=== PATIENT | male | born 1990 | race Caucasian/White ===

== ENCOUNTER 2024-01-08 17:05 | Inpatient (IN) | payer MEDICAID, OTHER ==
[~2024-01-08] VITALS: Ht 165.1 cm; Wt 54.4 kg
[2024-01-08 18:27] LABS: BASOPHILS % (AUTO) 0.1 % (0.0-2.0); EOSINOPHILS # (AUTO) 0.3 K/uL (0.0-0.7); EOSINOPHILS % (AUTO) 0.9 % (0.0-6.0); HEMATOCRIT 33 % (39-51); HEMOGLOBIN 11.2 g/dL (13.5-17.5); LYMPHOCYTES # (AUTO) 0.9 K/uL (0.8-4.8); LYMPHOCYTES % (AUTO) 2.5 % (20.0-44.0); MEAN CORPUSCULAR HEMOGLOBIN 33 PG (26.0-33.0); MEAN CORPUSCULAR HGB CONC 34 g/dl (31.0-36.0); MEAN CORPUSCULAR VOLUME 95 fL (80-96); MONOCYTES # (AUTO) 2.9 K/uL (0.1-1.30); MONOCYTES % (AUTO) 7.8 % (2.0-12.0); NEUTROPHILS # (AUTO) 33.4 K/uL (1.8-8.9); NEUTROPHILS % (AUTO) 88.7 % (43.0-81.0); RED BLOOD CELL COUNT(AUTO) 3.43 MIL/uL (4.5-6.0); RED CELL DISTRIBUTION WIDTH 13.9 % (11.5-15.0)
[2024-01-08] MEDS: IV NS 0.9% 1,000 ML BAG IV ONE (18:28)
[2024-01-08 18:52] LABS: CREATINE KINASE, TOTAL 353 U/L (39-308)
[2024-01-08 18:53] LABS: ALANINE AMINOTRANSFERASE 26 U/L (12-78); ALBUMIN 1.5 g/dL (3.4-5.0); ALCOHOL, BLOOD < 3 mg/dL (0-10); ALKALINE PHOSPHATASE 227 U/L (46-116); ASPARTATE AMINOTRANSFERASE 117 U/L (15-37); BILIRUBIN,DIRECT 1.8 mg/dL (0.0-0.2); BILIRUBIN,TOTAL 2.2 mg/dL (0.2-1.0); CARBON DIOXIDE 24 mmol/L (21-32); CHLORIDE 88 mmol/L (98-107); CREATININE 2.7 mg/dL (0.6-1.3); GLUCOSE 94 mg/dL (74-106); POTASSIUM 3.5 mmol/L (3.5-5.1); SODIUM SERUM 130 mmol/L (136-145); TOTAL PROTEIN, SERUM 6.1 g/dL (6.4-8.2)
[2024-01-08 18:54] LABS: APPEARANCE,URINE CLEAR (CLEAR); BILIRUBIN,URINE 1+ (NEGATIVE); BLOOD, URINE 3+ Ery/uL (NEGATIVE); COLOR,URINE YELLOW (YELLOW); KETONES,URINE NEGATIVE (NEGATIVE); LEUKOCYTE ESTERASE ,URINE NEGATIVE (NEGATIVE); NITRITE, URINE NEGATIVE (NEGATIVE); PROTEIN,URINE 1+ mg/dl (NEGATIVE); UGLUCOSE NEGATIVE (NEGATIVE)
[2024-01-08 19:02] LABS: ACETAMINOPHEN <10 ug/ml (10-30); SALICYLATE 1.6 mg/dL (2.8-20.0); UREA NITROGEN, BLOOD 81 mg/dL (7-18)
[2024-01-08 19:03] LABS: LACTIC ACID 3.3 mmol/L (0.4-2.0)
[2024-01-08 19:07] LABS: PLATELET COUNT (AUTO) 11 K/uL (150-450); WHITE BLOOD COUNT (AUTO) 37.6 K/uL (4.3-11.0)
[2024-01-08 19:12] LABS: BARBITURATE, URINE NEGATIVE (NEGATIVE); BENZODIAZEPINE, URINE NEGATIVE (NEGATIVE); CANNABINOID, URINE NEGATIVE (NEGATIVE); COCCAINE, URINE NEGATIVE (NEGATIVE); OPIATE, URINE NEGATIVE (NEGATIVE); PHENCYCLIDINE SCREEN,URINE NEGATIVE (NEGATIVE)
[2024-01-08 19:14] LABS: AMPHETAMINE, URINE POSITIVE (NEGATIVE)
[2024-01-08 19:16] LABS: ADD URINE CULTURE NO; BACTERIA,URINE None seen /HPF (None Seen); RBC,URINE 21-50 /HPF (0-2); SQUAMOUS EPITHELIAL CELL,UR 0-2 /HPF (None Seen); WBC,URINE 0-2 /HPF (0-3)
[2024-01-08 19:19] LABS: ANISOCYTOSIS 1+; BAND % (MANUAL) 4 % (0.0-5.0); LYMPHOCYTES % (MANUAL) 2 % (16-48); MONOCYTES % (MANUAL) 2 % (0-11.0); NEUTROPHILS % (MANUAL) 92 (42-76); PLATELET ESTIMATE DECREASED
[2024-01-08 19:20] LABS: TARGET CELLS RARE
[2024-01-08] MEDS ORDERED: VANCOMYCIN 1 GM /D5W 250 ML PB IV ONE (19:47)
[2024-01-08] MEDS ORDERED: PIPERACI/TAZO 3.375GM/D5W 50ML PB IV ONE (19:47)
[2024-01-08] MEDS: PIPERACILLIN /TAZOBACTAM 3.375 G in IV D5W 50 ML IV ONE (20:00)
[2024-01-08] MEDS: IV LR 1000 ML 1,000 ML BAG IV ONE (20:03)
[2024-01-08] MEDS: LORAZEPAM INJ 2 MG/ML VIAL IV ONE (20:05)
[2024-01-08 20:21] LABS: SITE, VBG Other; VBG BASE EXCESS 0.1 mmol/L (-3-3); VBG COHb 0.5 %; VBG MetHb 0.1 %; VBG O2Hb 83.8 %; VBG OXYGEN SATURATION 84.3 %; VBG PH 7.487 (7.31-7.41); VBG PO2 48.5 mmHg (30-50); VBG TOTAL HEMOGLOBIN 10.1 G/dL (13.5-18.0); VENT MODE, VBG room air
[2024-01-08] MEDS: VANCOMYCIN 1 GM in IV D5W 250 ML IV ONE (20:30)
[2024-01-08 21:25] VITALS: BP 103/51; TEMP 99; O2SAT 100
[2024-01-08] MEDS ORDERED: MAG HYDROX/AL HYDROX/SIMETH 30 ML UDC PO PRN (22:30)
[2024-01-08] MEDS ORDERED: MAGNESIUM HYDROXIDE 30 ML UDC PO PRN (22:30)
[2024-01-08] MEDS ORDERED: ONDANSETRON HCL/PF 4 MG/2 ML VIAL IVP PRN (22:30)
[2024-01-08] MEDS ORDERED: ZOLPIDEM TARTRATE 5 MG TABLET PO PRN (22:30)
[2024-01-08] MEDS: IV NS 0.9% 1,000 ML IV PRN (22:33)
[2024-01-08 23:41] VITALS: BP 103/51; TEMP 99; O2SAT 100
[2024-01-09] VITALS: BP 95/43; TEMP 99.1; O2SAT 99
[2024-01-09] MEDS ORDERED: PIPERACILLIN /TAZOBACTAM 2.25 G in IV D5W 50 ML IV SCH
[2024-01-09] MEDS: PIPERACI/TAZO 3.375GM/D5W 50ML PB IV ONE ×2 (01:19→05:52)
[2024-01-09] MEDS: PIPERACILLIN /TAZOBACTAM 3.375 G in IV NS 0.9% 100 ML IV SCH (01:34)
[2024-01-09 04:00] VITALS: BP 130/50; TEMP 97.7; O2SAT 100
[2024-01-09 07:00] VITALS: BP 117/38; TEMP 97.7; O2SAT 99
[2024-01-09 07:11] LABS: ERYTHROCYTE SEDIMENTATION RATE 30 MM/HR (0-15)
[2024-01-09 07:26] LABS: BILIRUBIN,DIRECT 2.6 mg/dL (0.0-0.2); CALCIUM, SERUM 7.7 mg/dL (8.5-10.1); CREATININE 2.1 mg/dL (0.6-1.3); PHOSPHORUS 4.5 mg/dL (2.5-4.9); TOTAL PROTEIN, SERUM 5.2 g/dL (6.4-8.2)
[2024-01-09 07:33] LABS: MAGNESIUM 2.6 mg/dL (1.8-2.4); THYROID STIMULATING HORMONE 3.959 uIU/mL (0.358-3.74)
[2024-01-09 07:56] LABS: EOSINOPHILS # (AUTO) 0.3 K/uL (0.0-0.7); EOSINOPHILS % (AUTO) 1.1 % (0.0-6.0); HEMATOCRIT 27 % (39-51); LYMPHOCYTES # (AUTO) 1.5 K/uL (0.8-4.8); LYMPHOCYTES % (AUTO) 4.7 % (20.0-44.0); MEAN CORPUSCULAR HEMOGLOBIN 33 PG (26.0-33.0); MEAN CORPUSCULAR HGB CONC 34 g/dl (31.0-36.0); MEAN CORPUSCULAR VOLUME 96 fL (80-96); MONOCYTES # (AUTO) 2.9 K/uL (0.1-1.30); MONOCYTES % (AUTO) 8.9 % (2.0-12.0); NEUTROPHILS % (AUTO) 85.3 % (43.0-81.0); RED BLOOD CELL COUNT(AUTO) 2.77 MIL/uL (4.5-6.0); RED CELL DISTRIBUTION WIDTH 14.1 % (11.5-15.0)
[2024-01-09 07:57] LABS: ALBUMIN 1.3 g/dL (3.4-5.0); POTASSIUM 2.3 mmol/L (3.5-5.1)
[2024-01-09 08:32] LABS: PLATELET COUNT (AUTO) 12 K/uL (150-450); WHITE BLOOD COUNT (AUTO) 32.8 K/uL (4.3-11.0)
[2024-01-09] MEDS: PIPERACILLIN /TAZOBACTAM 3.375 G in IV D5W 100 ML IV SCH (09:01)
[2024-01-09] MEDS: PANTOPRAZOLE 40 MG VIAL IV SCH (09:05)
[2024-01-09] MEDS: POTASSIUM CL. PREMIX PERIPHER. 50 ML IV SCH (11:21)
[2024-01-09 11:24] LABS: ANISOCYTOSIS 1+; BASOPHILS % (MANUAL) 0 % (0.0-2.0); EOSINOPHILS % (MANUAL) 2 % (0-4); LYMPHOCYTES % (MANUAL) 5 % (16-48); MONOCYTES % (MANUAL) 7 % (0-11.0); NEUTROPHILS % (MANUAL) 86 (42-76); PLATELET ESTIMATE DECREASED
[2024-01-09 11:30] VITALS: BP 105/42; TEMP 93.7; O2SAT 100
[2024-01-09] MEDS: MEROPENEM 1 G in IV NS 0.9% 100 ML IV SCH (12:23)
[2024-01-09 16:00] VITALS: BP 105/47; TEMP 97.7; O2SAT 100
[2024-01-09] MEDS: BLOOD SUGAR DIAGNOSTIC 1 EACH STRIP IN SCH (18:27)
[2024-01-09 20:00] VITALS: BP 110/50; TEMP 97.7; O2SAT 100
[2024-01-09] MEDS: VANCOMYCIN 1 GM in IV D5W 250 ML IV SCH (20:17)
[2024-01-10] VITALS (7 sets, daily range): BP systolic 112–133; BP diastolic 42–61; TEMP 97.9–99.9; O2SAT 96–100
[2024-01-10 01:48] LABS: HIV-1 p24 ANTIGEN NON REACTIVE (NONREACTIVE); HIV-1/2 ANTIBODY NON REACTIVE (NONREACTIVE)
[2024-01-10 07:29] LABS: BASOPHILS % (AUTO) 0.1 % (0.0-2.0); EOSINOPHILS % (AUTO) 0.2 % (0.0-6.0); HEMATOCRIT 24 % (39-51); HEMOGLOBIN 8.4 g/dL (13.5-17.5); LYMPHOCYTES # (AUTO) 1.4 K/uL (0.8-4.8); LYMPHOCYTES % (AUTO) 6.3 % (20.0-44.0); MEAN CORPUSCULAR HEMOGLOBIN 33 PG (26.0-33.0); MEAN CORPUSCULAR HGB CONC 34 g/dl (31.0-36.0); MEAN CORPUSCULAR VOLUME 96 fL (80-96); MONOCYTES # (AUTO) 1.7 K/uL (0.1-1.30); MONOCYTES % (AUTO) 7.5 % (2.0-12.0); NEUTROPHILS # (AUTO) 19.4 K/uL (1.8-8.9); NEUTROPHILS % (AUTO) 85.9 % (43.0-81.0); RED BLOOD CELL COUNT(AUTO) 2.55 MIL/uL (4.5-6.0); RED CELL DISTRIBUTION WIDTH 14.3 % (11.5-15.0); WHITE BLOOD COUNT (AUTO) 22.6 K/uL (4.3-11.0)
[2024-01-10 07:51] LABS: PLATELET COUNT (AUTO) 25 K/uL (150-450)
[2024-01-10 09:27] LABS: BILIRUBIN,TOTAL 2.2 mg/dL (0.2-1.0); CALCIUM, SERUM 7.9 mg/dL (8.5-10.1); CREATININE 1.5 mg/dL (0.6-1.3); MAGNESIUM 2.5 mg/dL (1.8-2.4); PHOSPHORUS 4.1 mg/dL (2.5-4.9); POTASSIUM 3.2 mmol/L (3.5-5.1); TOTAL PROTEIN, SERUM 5.4 g/dL (6.4-8.2)
[2024-01-10 10:19] LABS: ALBUMIN 1.3 g/dL (3.4-5.0)
[2024-01-10] MEDS: POTASSIUM CHLORIDE 20 MEQ POWDER PACKET PO ONE (12:55)
[2024-01-10 14:51] LABS: ANISOCYTOSIS 1+; LYMPHOCYTES % (MANUAL) 4 % (16-48); MONOCYTES % (MANUAL) 2 % (0-11.0); NEUTROPHILS % (MANUAL) 94 (42-76); PLATELET ESTIMATE DECREASED
[2024-01-11 01:34] VITALS: BP 121/48; TEMP 97.7; O2SAT 95
[2024-01-11 05:37] VITALS: BP 136/58; TEMP 99.7; O2SAT 92
[2024-01-11 08:00] VITALS: BP 134/56; TEMP 99.7; O2SAT 98
[2024-01-11 08:24] LABS: CALCIUM, SERUM 7.8 mg/dL (8.5-10.1); CREATININE 1.1 mg/dL (0.6-1.3); POTASSIUM 3.2 mmol/L (3.5-5.1)
[2024-01-11] MEDS: PANTOPRAZOLE 40 MG TABLET.DR PO SCH (08:34)
[2024-01-11] MEDS: PROSOURCE / PROSTAT (PYXIS) 30 ML UDC PO SCH (08:35)
[2024-01-11 09:08] LABS: PTH, INTACT 18 pg/mL (15-65)
[2024-01-11] MEDS: POTASSIUM CHLORIDE 20 MEQ POWDER PACKET PO SCH (10:49)
[2024-01-11] MEDS: ENSURE ENLIVE CHOC 237 ML CAN PO SCH (11:55)
[2024-01-11 12:00] VITALS: BP 147/76; TEMP 99.7; O2SAT 100
[2024-01-11 16:00] VITALS: BP 130/52; TEMP 99.1; O2SAT 97
[2024-01-11 16:10] LABS: *SPE A/G RATIO 0.5 (0.7-1.7); *SPE ALBUMIN 1.7 g/dL (2.9-4.4); *SPE ALPHA-1-GLOBULIN 0.4 g/dL (0.0-0.4); *SPE ALPHA-2-GLOBULIN 0.5 g/dL (0.4-1.0); *SPE BETA GLOBULIN 0.7 g/dL (0.7-1.3); *SPE GLOBULIN, TOTAL 3.1 g/dL (2.2-3.9); *SPE M-SPIKE Not Observed g/dL (Not Observed); *SPE PROTEIN TOTAL 4.8 g/dL (6.0-8.5); *SPEGAMMA GLOBULIN 1.4 g/dL (0.4-1.8)
[2024-01-11 20:00] VITALS: BP 131/60; TEMP 99.7; O2SAT 100; O2SAT 97
[2024-01-12] VITALS: BP 128/74; TEMP 99.7; O2SAT 91
[2024-01-12 04:00] VITALS: BP 135/79; TEMP 99.9; O2SAT 99
[2024-01-12 07:31] LABS: CALCIUM, SERUM 7.6 mg/dL (8.5-10.1); CREATININE 0.9 mg/dL (0.6-1.3)
[2024-01-12 08:00] VITALS: BP 153/75; TEMP 98.8; O2SAT 97
[2024-01-12] MEDS: VANCOMYCIN 1 GM in IV D5W 250 ML IV SCH (08:54)
[2024-01-12] MEDS: MEROPENEM 1 G in IV NS 0.9% 100 ML IV SCH (11:39)
[2024-01-12 12:00] VITALS: BP 153/80; TEMP 98.9; O2SAT 91
[2024-01-12 15:12] LABS: INR 1.47 (0.91-1.10); PARTIAL THROMBOPLASTIN TIME 30.6 SEC (24.3-34.3); PROTHROMBIN TIME 15.2 SECS (9.2-11.1)
[2024-01-12 16:00] VITALS: BP 144/88; TEMP 99.7; O2SAT 91
[2024-01-12] MEDS: VANCOMYCIN 750 MG in IV D5W 250 ML IV SCH (16:05)
[2024-01-12] MEDS ORDERED: CEFTRIAXONE 1 G VIAL IM SCH (17:00)
[2024-01-12] MEDS: ACETAMINOPHEN 325 MG TABLET PO PRN (17:22)
[2024-01-12 18:11] LABS: *HIV-1 RNA BY PCR <20 copies/mL (.)
[2024-01-12 20:00] VITALS: BP 125/61; TEMP 97.9; O2SAT 95
[2024-01-12] MEDS: CEFTRIAXONE 1 G in IV D5W 50 ML IV SCH (20:06)
[2024-01-13] VITALS (7 sets, daily range): BP systolic 120–140; BP diastolic 60–83; TEMP 98–99.7; O2SAT 97–100
[2024-01-13] MEDS: DEXTROSE 50%-WATER 50 ML DISP.SYRIN IV PRN (05:43)
[2024-01-13 07:52] LABS: CALCIUM, SERUM 7.4 mg/dL (8.5-10.1); POTASSIUM 4.1 mmol/L (3.5-5.1)
[2024-01-13 12:52] LABS: THYROID STIMULATING HORMONE 11.697 uIU/mL (0.358-3.74)
[2024-01-13] MEDS: Thiamine 250 MG in IV D5W 50 ML IV SCH (13:00)
[2024-01-13] MEDS: GABAPENTIN 300 MG CAPSULE PO SCH (17:35)
[2024-01-13] MEDS: MORPHINE SULFATE INJ 2 MG/ML DISP.SYRIN IV PRN (18:43)
[2024-01-14] VITALS (10 sets, daily range): BP systolic 100–143; BP diastolic 55–81; TEMP 97.6–99.9; O2SAT 88–100
[2024-01-14] MEDS: AMIODARONE HCL 200 MG TABLET PO SCH (08:45)
[2024-01-14] MEDS ORDERED: GABAPENTIN 300 MG CAPSULE PO SCH (10:30)
[2024-01-14 11:51] LABS: CALCIUM, SERUM 7.7 mg/dL (8.5-10.1); CREATININE 1.1 mg/dL (0.6-1.3); POTASSIUM 4.9 mmol/L (3.5-5.1)
[2024-01-14] MEDS: GABAPENTIN 300 MG CAPSULE PO SCH (12:04)
[2024-01-14 12:07] LABS: FOLIC ACID 12.5 ng/mL (>3.0)
[2024-01-14 15:44] LABS: ABG BASE EXCESS -6.1 mmol/L; ABG OXYGEN SATURATION 98.4 % (92.0-98.5); ABG PCO2 26.9 mmHg (35.0-45.0); ABG PH 7.428 (7.350-7.450); ABG PO2 147.2 mmHg (75.0-100.0); ABG TOTAL HEMOGLOBIN 8.5 G/dL (13.5-18.0); AaDO2 538.9 mmHg; COHb 0.8 % (0.5-1.5); MetHb 0.3 % (0.0-1.5); O2Hb 97.3 % (94.0-97.0); SITE, ABG Right Femoral; VENT MODE, BG NON REBREATHER
[2024-01-14] MEDS ORDERED: Sodium Bicarbonate 100 MEQ in IV D5/0.45 NACL 1,000 ML IV PRN (20:30)
[2024-01-14] MEDS: CEFTRIAXONE 2 G in IV D5W 50 ML IV SCH (20:41)
[2024-01-14] MEDS: SODIUM BICARBONATE SYR 50 MEQ/50 ML DISP.SYRIN ONE (20:54)
[2024-01-14] MEDS: Sodium Bicarbonate 50 MEQ in IV D5/0.45 NACL 1,000 ML IV PRN (21:04)
[2024-01-14] MEDS: QUETIAPINE FUMARATE 25 MG TABLET PO SCH (22:00)
[2024-01-14 23:28] LABS: ABG BASE EXCESS -10.1 mmol/L; ABG OXYGEN SATURATION 91.2 % (92.0-98.5); ABG PH 7.235 (7.350-7.450); ABG PO2 77.8 mmHg (75.0-100.0); ABG TOTAL HEMOGLOBIN 8.6 G/dL (13.5-18.0); AaDO2 595.2 mmHg; COHb 0.3 % (0.5-1.5); MetHb 0.3 % (0.0-1.5); O2Hb 90.7 % (94.0-97.0); SITE, ABG Left Radial; VENT MODE, BG 15LPM NRB
[2024-01-14] MEDS: LORAZEPAM INJ 2 MG/ML VIAL IV ONE (23:30)
[2024-01-15] VITALS (7 sets, daily range): BP systolic 114–133; BP diastolic 50–81; TEMP 98–98.7; O2SAT 88–100
[2024-01-15] MEDS: SODIUM BICARBONATE SYR 50 MEQ/50 ML DISP.SYRIN IV ONE (00:26)
[2024-01-15 01:37] LABS: ABG BASE EXCESS -4.8 mmol/L; ABG OXYGEN SATURATION 98.8 % (92.0-98.5); ABG PCO2 27.6 mmHg (35.0-45.0); ABG PH 7.446 (7.350-7.450); ABG PO2 192.4 mmHg (75.0-100.0); ABG TOTAL HEMOGLOBIN 7.7 G/dL (13.5-18.0); COHb 0.2 % (0.5-1.5); MetHb 0.4 % (0.0-1.5); O2Hb 98.2 % (94.0-97.0); SITE, ABG Right Radial; VENT MODE, BG S/T 20/8 RR20 FIO2 100
[2024-01-15 02:37] LABS: BASOPHILS % (AUTO) 0.1 % (0.0-2.0); HEMATOCRIT 24 % (39-51); HEMOGLOBIN 7.6 g/dL (13.5-17.5); LYMPHOCYTES # (AUTO) 1.4 K/uL (0.8-4.8); LYMPHOCYTES % (AUTO) 5.4 % (20.0-44.0); MEAN CORPUSCULAR HEMOGLOBIN 33 PG (26.0-33.0); MEAN CORPUSCULAR HGB CONC 32 g/dl (31.0-36.0); MEAN CORPUSCULAR VOLUME 104 fL (80-96); MONOCYTES # (AUTO) 0.6 K/uL (0.1-1.30); MONOCYTES % (AUTO) 2.3 % (2.0-12.0); NEUTROPHILS # (AUTO) 23.7 K/uL (1.8-8.9); NEUTROPHILS % (AUTO) 92.2 % (43.0-81.0); PLATELET COUNT (AUTO) 53 K/uL (150-450); RED BLOOD CELL COUNT(AUTO) 2.29 MIL/uL (4.5-6.0); RED CELL DISTRIBUTION WIDTH 14.2 % (11.5-15.0); WHITE BLOOD COUNT (AUTO) 25.7 K/uL (4.3-11.0)
[2024-01-15 02:47] LABS: CALCIUM, SERUM 7.5 mg/dL (8.5-10.1); CREATININE 1.2 mg/dL (0.6-1.3); POTASSIUM 5.5 mmol/L (3.5-5.1)
[2024-01-15 02:51] LABS: BILIRUBIN,DIRECT 0.6 mg/dL (0.0-0.2); BILIRUBIN,TOTAL 0.9 mg/dL (0.2-1.0); TOTAL PROTEIN, SERUM 5.5 g/dL (6.4-8.2)
[2024-01-15 02:54] LABS: ALBUMIN 1.2 g/dL (3.4-5.0)
[2024-01-15 03:18] LABS: NEUTROPHILS % (MANUAL) 96 (42-76)
[2024-01-15 03:19] LABS: ANISOCYTOSIS 2+; LYMPHOCYTES % (MANUAL) 3 % (16-48); MONOCYTES % (MANUAL) 1 % (0-11.0); PLATELET ESTIMATE DECREASED
[2024-01-15] MEDS: SODIUM POLYSTYRENE SULFONATE 15 G/60 ML BOTTLE PO ONE (08:54)
[2024-01-15] MEDS: FUROSEMIDE 20 MG/2 ML VIAL IV ONE (08:55)
[2024-01-15] MEDS: LACTULOSE 10 G/15 ML UDC (PYXIS) PO SCH (08:55)
[2024-01-15] MEDS: FUROSEMIDE 40 MG/4 ML VIAL IV SCH (10:09)
[2024-01-15] MEDS: MEROPENEM 1 G in IV NS 0.9% 100 ML IV SCH (12:56)
[2024-01-15 17:02] LABS: CALCIUM, SERUM 7.3 mg/dL (8.5-10.1); CREATININE 1.4 mg/dL (0.6-1.3); POTASSIUM 3.8 mmol/L (3.5-5.1)
[2024-01-16] VITALS (14 sets, daily range): BP systolic 96–121; BP diastolic 45–72; TEMP 97.9–98.7; O2SAT 91–100
[2024-01-16 04:47] LABS: BASOPHILS % (AUTO) 0.1 % (0.0-2.0); HEMATOCRIT 22 % (39-51); HEMOGLOBIN 7.3 g/dL (13.5-17.5); LYMPHOCYTES # (AUTO) 1.7 K/uL (0.8-4.8); LYMPHOCYTES % (AUTO) 5.7 % (20.0-44.0); MEAN CORPUSCULAR HEMOGLOBIN 34 PG (26.0-33.0); MEAN CORPUSCULAR HGB CONC 33 g/dl (31.0-36.0); MEAN CORPUSCULAR VOLUME 102 fL (80-96); MONOCYTES # (AUTO) 0.7 K/uL (0.1-1.30); MONOCYTES % (AUTO) 2.3 % (2.0-12.0); NEUTROPHILS # (AUTO) 26.7 K/uL (1.8-8.9); NEUTROPHILS % (AUTO) 91.9 % (43.0-81.0); PLATELET COUNT (AUTO) 56 K/uL (150-450); RED BLOOD CELL COUNT(AUTO) 2.19 MIL/uL (4.5-6.0); RED CELL DISTRIBUTION WIDTH 13.7 % (11.5-15.0); WHITE BLOOD COUNT (AUTO) 29.1 K/uL (4.3-11.0)
[2024-01-16 05:07] LABS: CALCIUM, SERUM 7.7 mg/dL (8.5-10.1); CREATININE 1.4 mg/dL (0.6-1.3); MAGNESIUM 1.7 mg/dL (1.8-2.4); PHOSPHORUS 4.5 mg/dL (2.5-4.9); POTASSIUM 2.9 mmol/L (3.5-5.1); TOTAL PROTEIN, SERUM 5.7 g/dL (6.4-8.2)
[2024-01-16 05:11] LABS: ALBUMIN 1.3 g/dL (3.4-5.0)
[2024-01-16 05:33] LABS: ANISOCYTOSIS 1+; BASOPHILS % (MANUAL) 0 % (0.0-2.0); EOSINOPHILS % (MANUAL) 0 % (0-4); LYMPHOCYTES % (MANUAL) 6 % (16-48); MONOCYTES % (MANUAL) 4 % (0-11.0); NEUTROPHILS % (MANUAL) 90 (42-76); OVALOCYTES 1+; PLATELET ESTIMATE DECREASED; STOMATOCYTES 1+
[2024-01-16] MEDS ORDERED: Magnesium 1 GM/2 ML VIAL IV ONE (09:00)
[2024-01-16] MEDS: POTASSIUM CHLORIDE 20 MEQ TAB.PRT.SR PO SCH (09:48)
[2024-01-16] MEDS: Magnesium 1GM/D5W 100ML PREMIX 100 ML IV SCH (09:53)
[2024-01-16] MEDS: FUROSEMIDE 40 MG/4 ML VIAL IV SCH (09:53)
[2024-01-16] MEDS: MEROPENEM 1 G in IV NS 0.9% 100 ML IV SCH (12:29)
[2024-01-16] MEDS: IV NS 0.9% 250 ML IV PRN (23:48)
[2024-01-17] VITALS (16 sets, daily range): BP systolic 104–131; BP diastolic 52–72; TEMP 98.5–99.3; O2SAT 91–100
[2024-01-17 04:45] LABS: BASOPHILS % (AUTO) 0.2 % (0.0-2.0); EOSINOPHILS # (AUTO) 0.1 K/uL (0.0-0.7); EOSINOPHILS % (AUTO) 0.4 % (0.0-6.0); HEMATOCRIT 21 % (39-51); LYMPHOCYTES # (AUTO) 1.5 K/uL (0.8-4.8); LYMPHOCYTES % (AUTO) 6.2 % (20.0-44.0); MEAN CORPUSCULAR HEMOGLOBIN 34 PG (26.0-33.0); MEAN CORPUSCULAR HGB CONC 33 g/dl (31.0-36.0); MEAN CORPUSCULAR VOLUME 103 fL (80-96); MONOCYTES # (AUTO) 0.8 K/uL (0.1-1.30); MONOCYTES % (AUTO) 3.4 % (2.0-12.0); NEUTROPHILS # (AUTO) 21.4 K/uL (1.8-8.9); NEUTROPHILS % (AUTO) 89.8 % (43.0-81.0); PLATELET COUNT (AUTO) 72 K/uL (150-450); RED BLOOD CELL COUNT(AUTO) 2.06 MIL/uL (4.5-6.0); WHITE BLOOD COUNT (AUTO) 23.8 K/uL (4.3-11.0)
[2024-01-17 04:58] LABS: BILIRUBIN,TOTAL 0.9 mg/dL (0.2-1.0); CALCIUM, SERUM 7.3 mg/dL (8.5-10.1); CREATININE 1.1 mg/dL (0.6-1.3); MAGNESIUM 1.8 mg/dL (1.8-2.4); PHOSPHORUS 2.5 mg/dL (2.5-4.9); POTASSIUM 3.4 mmol/L (3.5-5.1); TOTAL PROTEIN, SERUM 5.2 g/dL (6.4-8.2)
[2024-01-17 05:06] LABS: ALBUMIN 1.2 g/dL (3.4-5.0)
[2024-01-17 06:47] LABS: ANISOCYTOSIS 1+; BAND % (MANUAL) 1 % (0.0-5.0); BASOPHILS % (MANUAL) 0 % (0.0-2.0); EOSINOPHILS % (MANUAL) 0 % (0-4); HYPOCHROMASIA 1+; LYMPHOCYTES % (MANUAL) 9 % (16-48); MONOCYTES % (MANUAL) 5 % (0-11.0); NEUTROPHILS % (MANUAL) 85 (42-76); PLATELET ESTIMATE DECREASED
[2024-01-17 06:48] LABS: STOMATOCYTES 1+
[2024-01-17] MEDS: FUROSEMIDE 40 MG/4 ML VIAL IV SCH (09:27)
[2024-01-17] MEDS: POTASSIUM CHLORIDE 20 MEQ TAB.PRT.SR PO SCH (09:28)
[2024-01-17] MEDS: THIAMINE HCL 100 MG TABLET PO SCH (09:28)
[2024-01-17 17:14] LABS: EOSINOPHILS # (AUTO) 0.1 K/uL (0.0-0.7); HEMOGLOBIN 8.2 g/dL (13.5-17.5); LYMPHOCYTES # (AUTO) 1.8 K/uL (0.8-4.8); PLATELET COUNT (AUTO) 91 K/uL (150-450)
[2024-01-17 17:25] LABS: BASOPHILS % (AUTO) 0.1 % (0.0-2.0); EOSINOPHILS % (AUTO) 0.5 % (0.0-6.0); HEMATOCRIT 25 % (39-51); LYMPHOCYTES % (AUTO) 7.8 % (20.0-44.0); MEAN CORPUSCULAR HEMOGLOBIN 34 PG (26.0-33.0); MEAN CORPUSCULAR HGB CONC 33 g/dl (31.0-36.0); MEAN CORPUSCULAR VOLUME 103 fL (80-96); MONOCYTES # (AUTO) 0.8 K/uL (0.1-1.30); MONOCYTES % (AUTO) 3.7 % (2.0-12.0); NEUTROPHILS # (AUTO) 20.2 K/uL (1.8-8.9); NEUTROPHILS % (AUTO) 87.9 % (43.0-81.0); RED BLOOD CELL COUNT(AUTO) 2.42 MIL/uL (4.5-6.0); RED CELL DISTRIBUTION WIDTH 14.2 % (11.5-15.0); WHITE BLOOD COUNT (AUTO) 22.9 K/uL (4.3-11.0)
[2024-01-17 18:53] LABS: LYMPHOCYTES % (MANUAL) 6 % (16-48); MONOCYTES % (MANUAL) 4 % (0-11.0); NEUTROPHILS % (MANUAL) 90 (42-76); PLATELET ESTIMATE DECREASED
[2024-01-17 18:54] LABS: ANISOCYTOSIS 2+
[2024-01-17 22:59] LABS: OCCULT BLOOD STOOL NEGATIVE (NEGATIVE)
[2024-01-18] VITALS: BP 120/81; TEMP 98.4; O2SAT 97
[2024-01-18 04:00] VITALS: BP 103/55; TEMP 98.8; O2SAT 98
[2024-01-18 06:13] LABS: BILIRUBIN,TOTAL 0.9 mg/dL (0.2-1.0); CALCIUM, SERUM 7.3 mg/dL (8.5-10.1); MAGNESIUM 1.5 mg/dL (1.8-2.4); PHOSPHORUS 2.8 mg/dL (2.5-4.9); POTASSIUM 3.8 mmol/L (3.5-5.1); TOTAL PROTEIN, SERUM 5.7 g/dL (6.4-8.2)
[2024-01-18 06:28] LABS: ALBUMIN 1.4 g/dL (3.4-5.0)
[2024-01-18 06:47] LABS: BASOPHILS # (AUTO) 0.1 K/uL (0.0-0.2); BASOPHILS % (AUTO) 0.3 % (0.0-2.0); EOSINOPHILS # (AUTO) 0.2 K/uL (0.0-0.7); EOSINOPHILS % (AUTO) 0.9 % (0.0-6.0); HEMATOCRIT 21 % (39-51); LYMPHOCYTES # (AUTO) 1.6 K/uL (0.8-4.8); LYMPHOCYTES % (AUTO) 7.2 % (20.0-44.0); MEAN CORPUSCULAR HEMOGLOBIN 34 PG (26.0-33.0); MEAN CORPUSCULAR HGB CONC 33 g/dl (31.0-36.0); MEAN CORPUSCULAR VOLUME 103 fL (80-96); MONOCYTES # (AUTO) 0.9 K/uL (0.1-1.30); MONOCYTES % (AUTO) 3.9 % (2.0-12.0); NEUTROPHILS # (AUTO) 19.7 K/uL (1.8-8.9); NEUTROPHILS % (AUTO) 87.7 % (43.0-81.0); PLATELET COUNT (AUTO) 87 K/uL (150-450); RED BLOOD CELL COUNT(AUTO) 2.07 MIL/uL (4.5-6.0); RED CELL DISTRIBUTION WIDTH 14.1 % (11.5-15.0); WHITE BLOOD COUNT (AUTO) 22.4 K/uL (4.3-11.0)
[2024-01-18 08:00] VITALS: BP 107/63; TEMP 99.1; O2SAT 98
[2024-01-18] MEDS: Magnesium 1GM/D5W 100ML PREMIX 100 ML IV SCH (08:47)
[2024-01-18] MEDS: MINERAL OIL/PETROLATUM,WHITE 120 GM JAR TP SCH (10:39)
[2024-01-18 12:57] LABS: ANISOCYTOSIS 1+; BASOPHILS % (MANUAL) 0 % (0.0-2.0); EOSINOPHILS % (MANUAL) 0 % (0-4); LYMPHOCYTES % (MANUAL) 8 % (16-48); MONOCYTES % (MANUAL) 3 % (0-11.0); NEUTROPHILS % (MANUAL) 89 (42-76); PLATELET ESTIMATE DECREASED; STOMATOCYTES 1+
[2024-01-18 16:00] VITALS: BP 105/60; TEMP 99.5; O2SAT 100
[2024-01-18 18:31] LABS: HEMOGLOBIN 7.5 g/dL (13.5-17.5)
[2024-01-19] VITALS (8 sets, daily range): BP systolic 101–134; BP diastolic 51–82; TEMP 97.5–102.9; O2SAT 95–98
[2024-01-19] MEDS: Z GUARD REMEDY 4 OZ OINT TP PRN (08:10)
[2024-01-19 08:59] LABS: BASOPHILS # (AUTO) 0.1 K/uL (0.0-0.2); BASOPHILS % (AUTO) 0.5 % (0.0-2.0); EOSINOPHILS # (AUTO) 0.1 K/uL (0.0-0.7); EOSINOPHILS % (AUTO) 0.3 % (0.0-6.0); HEMATOCRIT 26 % (39-51); HEMOGLOBIN 8.3 g/dL (13.5-17.5); LYMPHOCYTES % (AUTO) 4.5 % (20.0-44.0); MEAN CORPUSCULAR HEMOGLOBIN 33 PG (26.0-33.0); MEAN CORPUSCULAR HGB CONC 32 g/dl (31.0-36.0); MEAN CORPUSCULAR VOLUME 102 fL (80-96); MONOCYTES % (AUTO) 4.5 % (2.0-12.0); NEUTROPHILS # (AUTO) 20.7 K/uL (1.8-8.9); NEUTROPHILS % (AUTO) 90.2 % (43.0-81.0); PLATELET COUNT (AUTO) 68 K/uL (150-450); RED BLOOD CELL COUNT(AUTO) 2.52 MIL/uL (4.5-6.0); RED CELL DISTRIBUTION WIDTH 15.8 % (11.5-15.0)
[2024-01-19 09:16] LABS: CALCIUM, SERUM 7.7 mg/dL (8.5-10.1); CREATININE 1.1 mg/dL (0.6-1.3); MAGNESIUM 2.1 mg/dL (1.8-2.4); PHOSPHORUS 3.7 mg/dL (2.5-4.9)
[2024-01-19 09:19] LABS: ALBUMIN 1.4 g/dL (3.4-5.0)
[2024-01-19 10:00] LABS: ANISOCYTOSIS 1+; BASOPHILS % (MANUAL) 0 % (0.0-2.0); EOSINOPHILS % (MANUAL) 1 % (0-4); LYMPHOCYTES % (MANUAL) 7 % (16-48); MONOCYTES % (MANUAL) 2 % (0-11.0); NEUTROPHILS % (MANUAL) 90 (42-76); PLATELET ESTIMATE DECREASED; STOMATOCYTES 1+
[2024-01-19] MEDS: ACETAMINOPHEN 325 MG TABLET PO PRN (16:58)
[2024-01-19 18:13] LABS: HEMOGLOBIN 8.1 g/dL (13.5-17.5)
[2024-01-20 08:00] VITALS: BP 110/52; TEMP 99.7; O2SAT 100
[2024-01-20 09:07] LABS: VITAMIN B1 THIAMINE,WB 72.8 nmol/L (66.5-200.0)
[2024-01-20 16:00] VITALS: BP 108/66; TEMP 99.7; O2SAT 99
[2024-01-20 20:00] VITALS: BP 105/59; TEMP 98.5; O2SAT 100
[2024-01-21 08:00] VITALS: BP 116/51; TEMP 99.1; O2SAT 100
[2024-01-21 16:00] VITALS: BP 101/58; TEMP 100.8; O2SAT 100
[2024-01-21 16:32] LABS: CALCIUM, SERUM 7.5 mg/dL (8.5-10.1)
[2024-01-21 20:00] VITALS: BP 94/55; TEMP 98.6; O2SAT 98
[2024-01-22 08:00] VITALS: BP 111/51; TEMP 98.5; O2SAT 100
[2024-01-22 11:09] LABS: BASOPHILS # (AUTO) 0.1 K/uL (0.0-0.2); BASOPHILS % (AUTO) 0.9 % (0.0-2.0); EOSINOPHILS # (AUTO) 0.1 K/uL (0.0-0.7); HEMATOCRIT 25 % (39-51); HEMOGLOBIN 7.9 g/dL (13.5-17.5); LYMPHOCYTES # (AUTO) 1.2 K/uL (0.8-4.8); LYMPHOCYTES % (AUTO) 9.2 % (20.0-44.0); MEAN CORPUSCULAR HEMOGLOBIN 34 PG (26.0-33.0); MEAN CORPUSCULAR HGB CONC 32 g/dl (31.0-36.0); MEAN CORPUSCULAR VOLUME 104 fL (80-96); MONOCYTES % (AUTO) 7.2 % (2.0-12.0); NEUTROPHILS % (AUTO) 81.7 % (43.0-81.0); PLATELET COUNT (AUTO) 69 K/uL (150-450); RED BLOOD CELL COUNT(AUTO) 2.35 MIL/uL (4.5-6.0); RED CELL DISTRIBUTION WIDTH 20.3 % (11.5-15.0); WHITE BLOOD COUNT (AUTO) 13.4 K/uL (4.3-11.0)
[2024-01-22 11:32] LABS: BILIRUBIN,TOTAL 0.5 mg/dL (0.2-1.0); CALCIUM, SERUM 7.8 mg/dL (8.5-10.1); CREATININE 0.9 mg/dL (0.6-1.3); PHOSPHORUS 3.1 mg/dL (2.5-4.9); POTASSIUM 4.2 mmol/L (3.5-5.1); TOTAL PROTEIN, SERUM 6.2 g/dL (6.4-8.2)
[2024-01-22 11:35] LABS: ALBUMIN 1.3 g/dL (3.4-5.0)
[2024-01-22 13:42] LABS: ANISOCYTOSIS 1+; BASOPHILS % (MANUAL) 0 % (0.0-2.0); EOSINOPHILS % (MANUAL) 1 % (0-4); LYMPHOCYTES % (MANUAL) 8 % (16-48); MONOCYTES % (MANUAL) 4 % (0-11.0); NEUTROPHILS % (MANUAL) 87 (42-76); PLATELET ESTIMATE DECREASED
[2024-01-22 16:00] VITALS: BP 112/56; TEMP 100.4; O2SAT 98
[2024-01-22 21:18] VITALS: BP 114/50; TEMP 100.8; O2SAT 100
[2024-01-23 06:12] LABS: BASOPHILS # (AUTO) 0.1 K/uL (0.0-0.2); BASOPHILS % (AUTO) 0.8 % (0.0-2.0); EOSINOPHILS # (AUTO) 0.1 K/uL (0.0-0.7); HEMATOCRIT 21 % (39-51); LYMPHOCYTES # (AUTO) 1.3 K/uL (0.8-4.8); LYMPHOCYTES % (AUTO) 10.9 % (20.0-44.0); MEAN CORPUSCULAR HEMOGLOBIN 33 PG (26.0-33.0); MEAN CORPUSCULAR HGB CONC 33 g/dl (31.0-36.0); MEAN CORPUSCULAR VOLUME 100 fL (80-96); MONOCYTES # (AUTO) 1.1 K/uL (0.1-1.30); MONOCYTES % (AUTO) 9.1 % (2.0-12.0); NEUTROPHILS % (AUTO) 78.2 % (43.0-81.0); PLATELET COUNT (AUTO) 73 K/uL (150-450); RED BLOOD CELL COUNT(AUTO) 2.12 MIL/uL (4.5-6.0); RED CELL DISTRIBUTION WIDTH 16.6 % (11.5-15.0); WHITE BLOOD COUNT (AUTO) 11.6 K/uL (4.3-11.0)
[2024-01-23 06:24] LABS: BILIRUBIN,TOTAL 0.4 mg/dL (0.2-1.0); CALCIUM, SERUM 7.6 mg/dL (8.5-10.1); CREATININE 0.9 mg/dL (0.6-1.3); MAGNESIUM 1.7 mg/dL (1.8-2.4); PHOSPHORUS 3.1 mg/dL (2.5-4.9)
[2024-01-23 06:26] LABS: ALBUMIN 1.3 g/dL (3.4-5.0)
[2024-01-23 06:41] LABS: NEUTROPHILS % (MANUAL) 82 (42-76)
[2024-01-23 06:42] LABS: ANISOCYTOSIS 1+; BASOPHILS % (MANUAL) 0 % (0.0-2.0); EOSINOPHILS % (MANUAL) 3 % (0-4); LYMPHOCYTES % (MANUAL) 7 % (16-48); MONOCYTES % (MANUAL) 8 % (0-11.0); PLATELET ESTIMATE DECREASED; STOMATOCYTES 1+
[2024-01-23 07:30] VITALS: BP 98/33; TEMP 98.6; O2SAT 100
[2024-01-23] MEDS: Magnesium 1GM/D5W 100ML PREMIX 100 ML IV SCH (08:25)
[2024-01-23] MEDS: PROSOURCE / PROSTAT (PYXIS) 30 ML UDC PO SCH (08:49)
[2024-01-23 16:00] VITALS: BP 105/52; TEMP 100.2; O2SAT 99
[2024-01-23 16:41] VITALS: TEMP 99.9; O2SAT 98
[2024-01-23 20:00] VITALS: BP 105/52; TEMP 99; O2SAT 100
[2024-01-24 06:59] LABS: BASOPHILS # (AUTO) 0.1 K/uL (0.0-0.2); BASOPHILS % (AUTO) 0.9 % (0.0-2.0); EOSINOPHILS # (AUTO) 0.1 K/uL (0.0-0.7); EOSINOPHILS % (AUTO) 0.9 % (0.0-6.0); HEMATOCRIT 23 % (39-51); HEMOGLOBIN 7.7 g/dL (13.5-17.5); LYMPHOCYTES % (AUTO) 13.3 % (20.0-44.0); MEAN CORPUSCULAR HEMOGLOBIN 34 PG (26.0-33.0); MEAN CORPUSCULAR HGB CONC 34 g/dl (31.0-36.0); MEAN CORPUSCULAR VOLUME 100 fL (80-96); MONOCYTES # (AUTO) 1.3 K/uL (0.1-1.30); MONOCYTES % (AUTO) 8.2 % (2.0-12.0); NEUTROPHILS # (AUTO) 11.9 K/uL (1.8-8.9); NEUTROPHILS % (AUTO) 76.7 % (43.0-81.0); PLATELET COUNT (AUTO) 105 K/uL (150-450); RED BLOOD CELL COUNT(AUTO) 2.29 MIL/uL (4.5-6.0); RED CELL DISTRIBUTION WIDTH 16.6 % (11.5-15.0); WHITE BLOOD COUNT (AUTO) 15.4 K/uL (4.3-11.0)
[2024-01-24 07:16] LABS: BILIRUBIN,TOTAL 0.5 mg/dL (0.2-1.0); CALCIUM, SERUM 7.3 mg/dL (8.5-10.1); MAGNESIUM 2.1 mg/dL (1.8-2.4); PHOSPHORUS 2.8 mg/dL (2.5-4.9); POTASSIUM 4.1 mmol/L (3.5-5.1); TOTAL PROTEIN, SERUM 6.3 g/dL (6.4-8.2)
[2024-01-24 07:43] LABS: ALBUMIN 1.4 g/dL (3.4-5.0)
[2024-01-24 08:00] VITALS: BP 104/53; TEMP 100; O2SAT 99
[2024-01-24 16:00] VITALS: BP 122/57; TEMP 99.1; O2SAT 100
[2024-01-24 20:00] VITALS: BP_SYST 112; BP_SYST 138; BP_DIAS 51; BP_DIAS 70; TEMP 100.4; TEMP 99.3; O2SAT 96; O2SAT 99
[2024-01-25 07:00] VITALS: BP 110/59; TEMP 97.5; O2SAT 97
[2024-01-25 16:00] VITALS: BP 113/62; TEMP 97.7; O2SAT 96
[2024-01-25 20:00] VITALS: BP 109/58; TEMP 100; TEMP 100.2; O2SAT 97
[2024-01-26 08:14] VITALS: BP 108/60; TEMP 98.6; O2SAT 95
[2024-01-26 09:39] LABS: BASOPHILS # (AUTO) 0.1 K/uL (0.0-0.2); BASOPHILS % (AUTO) 0.8 % (0.0-2.0); EOSINOPHILS # (AUTO) 0.2 K/uL (0.0-0.7); EOSINOPHILS % (AUTO) 1.4 % (0.0-6.0); HEMATOCRIT 26 % (39-51); HEMOGLOBIN 8.3 g/dL (13.5-17.5); LYMPHOCYTES # (AUTO) 1.4 K/uL (0.8-4.8); MEAN CORPUSCULAR HEMOGLOBIN 33 PG (26.0-33.0); MEAN CORPUSCULAR HGB CONC 32 g/dl (31.0-36.0); MEAN CORPUSCULAR VOLUME 101 fL (80-96); MONOCYTES # (AUTO) 1.1 K/uL (0.1-1.30); MONOCYTES % (AUTO) 7.9 % (2.0-12.0); NEUTROPHILS # (AUTO) 11.2 K/uL (1.8-8.9); NEUTROPHILS % (AUTO) 79.9 % (43.0-81.0); PLATELET COUNT (AUTO) 175 K/uL (150-450); RED BLOOD CELL COUNT(AUTO) 2.56 MIL/uL (4.5-6.0); RED CELL DISTRIBUTION WIDTH 16.5 % (11.5-15.0)
[2024-01-26 09:52] LABS: BILIRUBIN,TOTAL 0.4 mg/dL (0.2-1.0); CALCIUM, SERUM 7.6 mg/dL (8.5-10.1); POTASSIUM 4.1 mmol/L (3.5-5.1); TOTAL PROTEIN, SERUM 6.2 g/dL (6.4-8.2)
[2024-01-26 10:00] LABS: ALBUMIN 1.3 g/dL (3.4-5.0)
[2024-01-26 15:48] VITALS: BP 100/50; TEMP 97.9; O2SAT 96
[2024-01-26 20:00] VITALS: BP 100/49; TEMP 98.4; O2SAT 99
[2024-01-27] VITALS (7 sets, daily range): BP systolic 99–116; BP diastolic 59–65; TEMP 98.6–99.5; O2SAT 98–100
[2024-01-27 06:52] LABS: CALCIUM, SERUM 7.3 mg/dL (8.5-10.1); MAGNESIUM 1.6 mg/dL (1.8-2.4); PHOSPHORUS 3.9 mg/dL (2.5-4.9)
[2024-01-27 06:53] LABS: BASOPHILS # (AUTO) 0.1 K/uL (0.0-0.2); BASOPHILS % (AUTO) 1.1 % (0.0-2.0); EOSINOPHILS # (AUTO) 0.3 K/uL (0.0-0.7); EOSINOPHILS % (AUTO) 2.8 % (0.0-6.0); HEMATOCRIT 21 % (39-51); LYMPHOCYTES # (AUTO) 1.8 K/uL (0.8-4.8); LYMPHOCYTES % (AUTO) 15.6 % (20.0-44.0); MEAN CORPUSCULAR HEMOGLOBIN 33 PG (26.0-33.0); MEAN CORPUSCULAR HGB CONC 33 g/dl (31.0-36.0); MEAN CORPUSCULAR VOLUME 99 fL (80-96); MONOCYTES # (AUTO) 1.1 K/uL (0.1-1.30); MONOCYTES % (AUTO) 9.2 % (2.0-12.0); NEUTROPHILS # (AUTO) 8.4 K/uL (1.8-8.9); NEUTROPHILS % (AUTO) 71.3 % (43.0-81.0); PLATELET COUNT (AUTO) 180 K/uL (150-450); RED BLOOD CELL COUNT(AUTO) 2.14 MIL/uL (4.5-6.0); RED CELL DISTRIBUTION WIDTH 15.7 % (11.5-15.0); WHITE BLOOD COUNT (AUTO) 11.8 K/uL (4.3-11.0)
[2024-01-27] MEDS: Magnesium 1GM/D5W 100ML PREMIX 100 ML IV SCH (16:34)
[2024-01-27] MEDS: LEVALBUTEROL HCL NEB 1.25 MG/0.5 ML VIAL.NEB NEB PRN (22:45)
[2024-01-28 08:00] VITALS: BP 112/60; TEMP 98.2; O2SAT 94
[2024-01-28 15:43] VITALS: BP 105/57; TEMP 100.2; O2SAT 99
[2024-01-28 20:00] VITALS: BP 112/65; TEMP 98.4; O2SAT 98
[2024-01-28 20:21] LABS: BASOPHILS # (AUTO) 0.1 K/uL (0.0-0.2); EOSINOPHILS # (AUTO) 0.2 K/uL (0.0-0.7); EOSINOPHILS % (AUTO) 1.6 % (0.0-6.0); LYMPHOCYTES # (AUTO) 1.7 K/uL (0.8-4.8); LYMPHOCYTES % (AUTO) 11.5 % (20.0-44.0); MEAN CORPUSCULAR HEMOGLOBIN 32 PG (26.0-33.0); MEAN CORPUSCULAR HGB CONC 32 g/dl (31.0-36.0); MEAN CORPUSCULAR VOLUME 99 fL (80-96); MONOCYTES % (AUTO) 6.5 % (2.0-12.0); NEUTROPHILS # (AUTO) 11.8 K/uL (1.8-8.9); NEUTROPHILS % (AUTO) 79.4 % (43.0-81.0); PLATELET COUNT (AUTO) 222 K/uL (150-450); RED BLOOD CELL COUNT(AUTO) 2.05 MIL/uL (4.5-6.0); WHITE BLOOD COUNT (AUTO) 14.8 K/uL (4.3-11.0)
[2024-01-28 20:23] LABS: HEMOGLOBIN 6.5 g/dL (13.5-17.5)
[2024-01-28 20:24] LABS: HEMATOCRIT 20 % (39-51)
[2024-01-28 21:12] LABS: EOSINOPHILS % (MANUAL) 4 % (0-4); LYMPHOCYTES % (MANUAL) 12 % (16-48); MONOCYTES % (MANUAL) 8 % (0-11.0); NEUTROPHILS % (MANUAL) 76 (42-76); PLATELET ESTIMATE ADEQUATE
[2024-01-28 23:46] VITALS: O2SAT 99
[2024-01-29] VITALS (8 sets, daily range): BP systolic 110–155; BP diastolic 66–82; TEMP 98.2–99.7; O2SAT 88–100
[2024-01-29] MEDS ORDERED: HYDROCODONE/APAP 5/325MG TABLET PO ONE (19:30)
[2024-01-29] MEDS ORDERED: EPINEPHRINE (1:10,000) SYRINGE 1 MG/10 ML DISP.SYRIN ONE ×2 (20:07→20:33)
[2024-01-29 20:25] LABS: BASOPHILS # (AUTO) 0.3 K/uL (0.0-0.2); BASOPHILS % (AUTO) 1.2 % (0.0-2.0); EOSINOPHILS # (AUTO) 0.2 K/uL (0.0-0.7); EOSINOPHILS % (AUTO) 0.8 % (0.0-6.0); HEMATOCRIT 25 % (39-51); HEMOGLOBIN 7.7 g/dL (13.5-17.5); LYMPHOCYTES # (AUTO) 5.2 K/uL (0.8-4.8); LYMPHOCYTES % (AUTO) 21.3 % (20.0-44.0); MEAN CORPUSCULAR HEMOGLOBIN 32 PG (26.0-33.0); MEAN CORPUSCULAR HGB CONC 31 g/dl (31.0-36.0); MEAN CORPUSCULAR VOLUME 103 fL (80-96); MONOCYTES # (AUTO) 1.1 K/uL (0.1-1.30); MONOCYTES % (AUTO) 4.5 % (2.0-12.0); NEUTROPHILS # (AUTO) 17.4 K/uL (1.8-8.9); NEUTROPHILS % (AUTO) 72.2 % (43.0-81.0); PLATELET COUNT (AUTO) 265 K/uL (150-450); WHITE BLOOD COUNT (AUTO) 24.2 K/uL (4.3-11.0)
[2024-01-29] MEDS ORDERED: NOREPINEPHRINE 8 MG in IV D5W 242 ML IV PRN (20:30)
[2024-01-29] MEDS ORDERED: EPINEPHRINE (1:10,000) SYRINGE 1 MG/10 ML DISP.SYRIN IVP ONE (20:32)
[2024-01-29] MEDS ORDERED: SODIUM BICARBONATE SYR 50 MEQ/50 ML DISP.SYRIN IV ONE (20:32)
== END 2024-01-29 20:33 | DRG 720 ==
LOC: ER 17:10 → TELE 20:29 → TELE1 01-12 17:47 → TELE-TD 01-12 18:14 → ICU 01-15 00:12 → TELE 01-17 13:26 → MED 01-18 10:19
PROVIDERS: ADMIT Nurse Practitioner Acute Care; ATTEND Internal Medicine
PROC: 5A09457 Assistance with Respiratory Ventilation, 24-96 Consecutive Hours, Continuous Positive Airway Pressure (ICD-10-PCS; principal; 2024-01-15)
PROC: 30233N1 Transfusion of Nonautologous Red Blood Cells into Peripheral Vein, Percutaneous Approach (ICD-10-PCS; 2024-01-19)
PROC: 02HV33Z Insertion of Infusion Device into Superior Vena Cava, Percutaneous Approach (ICD-10-PCS; 2024-01-22)
PROC: B548ZZA Ultrasonography of Superior Vena Cava, Guidance (ICD-10-PCS; 2024-01-22)
PROC: 5A12012 Performance of Cardiac Output, Single, Manual (ICD-10-PCS; 2024-01-29)
PROC: 5A2204Z Restoration of Cardiac Rhythm, Single (ICD-10-PCS; 2024-01-29)
DX: A41.50 Gram-negative sepsis, unspecified (principal); N17.0 Acute kidney failure with tubular necrosis; I33.0 Acute and subacute infective endocarditis; E43 Unspecified severe protein-calorie malnutrition; J96.01 Acute respiratory failure with hypoxia; J96.02 Acute respiratory failure with hypercapnia; G92.8 Other toxic encephalopathy; E87.20 Acidosis, unspecified; R64 Cachexia; D69.6 Thrombocytopenia, unspecified; E87.1 Hypo-osmolality and hyponatremia; J15.9 Unspecified bacterial pneumonia; M62.82 Rhabdomyolysis; D73.5 Infarction of spleen; E86.0 Dehydration; D64.9 Anemia, unspecified; E87.8 Other disorders of electrolyte and fluid balance, not elsewhere classified; E88.09 Other disorders of plasma-protein metabolism, not elsewhere classified; F15.10 Other stimulant abuse, uncomplicated; I35.2 Nonrheumatic aortic (valve) stenosis with insufficiency; I42.7 Cardiomyopathy due to drug and external agent; E86.1 Hypovolemia; E87.5 Hyperkalemia; E87.6 Hypokalemia; E83.42 Hypomagnesemia; K64.9 Unspecified hemorrhoids; I31.39 Other pericardial effusion (noninflammatory); I50.9 Heart failure, unspecified; Z59.01 Sheltered homelessness; F10.10 Alcohol abuse, uncomplicated; R26.81 Unsteadiness on feet; R74.01 Elevation of levels of liver transaminase levels; R74.8 Abnormal levels of other serum enzymes
CPT/HCPCS: 36415; 36569; 36600; 70450-TC; 71045-TC; 76770-TC; 80048-TC; 80053-TC; 80061-TC; 80076-TC; 80202-TC; 81001; 82140-TC; 82272-TC; 82550-TC; 82553; 82607-TC; 82803-TC; 82962-TC; 83540-TC; 83605-TC; 83735-TC; 83921; 83935-TC; 83970; 84100-TC; 84155; 84165; 84425; 84439-TC; 84443-TC; 84484-TC; 85025-TC; 85027-TC; 85610-TC; 85652-TC; 85730-TC; 86803; 86850; 86850-TC; 86860; 86870; 86880; 86885; 86900; 86901; 86905; 86906; 86970; 86971; 87040-TC; 87081-TC; 87536; 87806; 92526; 92611-TC; 92950-TC; 93307-TC; 94760-TC; 94761-TC; 94799-TC; 97110-TC; 97112-TC; 97116-TC; 97164; 97530-TC; 99082-TC; A4223; C9113; G0378; G0480; J0171; J0696; J1940; J2060; J2185; J2270; J2543; J3370; J3371; J3411; J3475; J3480; J3490; J7030; J7040; J7050; J7060; J7120; P9016